=== PATIENT | female | born 1960 | race Caucasian/White ===

== ENCOUNTER → 2021-06-15 | Outpatient (CLI) | payer OTHER, MEDICAID ==
--- NOTE | 2021-06-15 15:59 | REP ---
INDICATION: RADICULOPATHY, CARPAL TUNNEL. COMPARISON: None. TECHNIQUE: AP, lateral, and oblique views of the right and left wrist. FINDINGS: Left and right wrists demonstrates advanced degenerative changes primarily involving the 1st carpometacarpal joints bilaterally including cortical irregularity, heterotopic ossification/osteophyte formation, subchondral cystic changes, periarticular sclerosis, and chronic subluxation. Cortical irregularity and subtle heterogeneity to the remainder of the carpal bones as well as periarticular sclerosis and joint space narrowing at the radiocarpal joint line. IMPRESSION: Advanced degenerative changes primarily involving the 1st carpometacarpal joints bilaterally. <Electronically signed by Charlie Solomon > 06/15/21 [id number]
--- NOTE | 2021-06-15 16:40 | REP ---
INDICATION: RADICULOPATHY, CARPAL TUNNEL. COMPARISON: None. TECHNIQUE: Seven views FINDINGS: Marked hypertrophic degenerative changes are seen involving the facet joints and uncovertebral joints bilaterally at all levels. There is foraminal narrowing seen from C3-4 to C7-T1 bilaterally. There is advanced disc space narrowing seen C5-6 2 C7-T1 inclusive. On the neutral lateral view there is a 7.2 mm anterolisthesis of C4 on C5. This increases to 6.84 mm on flexion and reduces back to 5.2 mm on extension. Heavy anterior and posterior osteophytic ridging is seen C4 through C7. The dens cannot be effectively evaluated secondary to the superimposition of osseous structures and/or dentition on all views. 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 Neurosurgical consultation is recommended. <Electronically signed by Eddie Curran > 06/15/21 [id number]
== END ==
LOC: M SOG 14:07
PROVIDERS: ATTEND Orthopaedic Surgery Sports Medicine
DX: M54.12 Radiculopathy, cervical region (principal); M43.02 Spondylolysis, cervical region; M48.02 Spinal stenosis, cervical region; M19.031 Primary osteoarthritis, right wrist; M19.032 Primary osteoarthritis, left wrist; G56.03 Carpal tunnel syndrome, bilateral upper limbs

== ENCOUNTER → 2021-06-28 | Outpatient (CLI) | payer OTHER ==
--- NOTE | 2021-06-28 17:03 | REPVR ---
PROCEDURE INFORMATION: Exam: MR Cervical Spine Without Contrast Exam date and time: 06/28/2021 3:00 PM Age: 61 years old Clinical indication: Radicular pain (radiculopathy); Cervical region; Additional info: Radiculopathy, carpal tunnel syndrome TECHNIQUE: Imaging protocol: Multiplanar magnetic resonance images of the cervical spine without contrast. COMPARISON: CR SPINE CERVICAL COMPLETE 06/15/2021 2:09 PM FINDINGS: Vertebrae: There is 2 mm of anterolisthesis of C3 upon C4, C4 upon C5, and C7 upon T1. There is 2 mm retrolisthesis of C6 upon C7. There is preservation of vertebral body height. Disc spaces: There is loss of T2 signal throughout the intervertebral disc spaces, with loss of disc space height at C5-C6 and C6-C7, findings related to degenerative disc disease. Spinal cord: Normal signal. No cord compression. C2-C3: No significant disc disease. There are facet joint degenerative changes with mild narrowing of the neural foramina. No significant spinal stenosis. C3-C4: There is a small disc osteophyte complex without mass effect. There are uncovertebral joint and facet joint degenerative changes with severe narrowing the left and moderate narrowing the right. No significant spinal stenosis. C4-C5: There is a small disc osteophyte complex does reach the cord. There are uncovertebral joint and facet joint degenerative changes with moderate narrowing the right and mild the left neural. No significant spinal stenosis. C5-C6: There is a diffuse disc osteophyte complex which extends to but does not cause mass effect on the cord. There are uncovertebral joint and facet joint degenerative changes with severe narrowing the neural foramina borderline compromise of the central, with the AP diameter measuring 9.6 mm. C6-C7: There is a diffuse disc osteophyte complex which extends to but does not cause mass effect on the cord. There are uncovertebral joint and facet joint degenerative changes with severe narrowing the neural foramina borderline compromise of the central, with the AP diameter also measuring 9.6 mm. C7-T1: No significant disc disease. There are facet joint degenerative changes. No significant spinal stenosis. Soft tissues: Unremarkable. Vertebral arteries: Expected flow voids in the vertebral arteries. IMPRESSION: 1. There are degenerative changes throughout with borderline central stenosis at C5-C6 and C6-C7. 2. There is severe neural foraminal narrowing throughout, most severe at C5-C6 and C6-C7. Electronically signed by: Constantin Plaza On 06/28/2021 17:02:54 PM
--- NOTE | 2021-06-30 10:37 | REP ---
INDICATION: RADICULOPATHY, CARPAL TUNNEL SYNDROME. COMPARISON: None. TECHNIQUE: Radiographs 06/15/2021. The study is limited by patient motion. FINDINGS: Triangular fibrocartilage complex:There appears to be a partial tear of the triangular fibrocartilage complex at the ulnar styloid insertion. Scapholunate and lunatotriquetral ligaments: Intact. Flexor and extensor tendons: Intact. No tenosynovitis. Carpal tunnel region: No significant abnormality. No abnormal signal in median nerve. In the anterolateral superficial soft tissues at the level of the proximal carpal row there is a lobulated cystic structure, most consistent with a ganglion cyst, measuring approximately 7 x 17 x 11 mm. Joint fluid: No effusion. Distal radioulnar joint: Small amount of fluid present. Bone marrow:Diffuse arthritic changes seen at the intercarpal joints, with mild scattered subcortical cystic change in the capitate and scaphoid. Severe arthritic changes seen between the trapezium and base of 1st metacarpal with large spurs at the medial margin of that joint and lateral subluxation of the base of the 1st metacarpal. There is a subcentimeter subcortical cyst in the head of the 1st metacarpal. There are moderate degenerative changes noted at the 1st metacarpophalangeal joint. IMPRESSION: There appears to be a partial tear of the triangular fibrocartilage complex at the ulnar styloid insertion. In the anterolateral superficial soft tissues at the level of the proximal carpal row there is a lobulated cystic structure, most consistent with a ganglion cyst, measuring approximately 7 x 17 x 11 mm. Mild arthritic changes of the intercarpal joints. Severe arthritic changes at the joint between the trapezium and base of 1st metacarpal. <Electronically signed by Javad Zamudio > 06/30/21 [id number]
--- NOTE | 2021-06-30 11:40 | REP ---
INDICATION: RADICULOPATHY, CARPAL TUNNEL SYNDROME. COMPARISON: Radiographs 06/15/2021. TECHNIQUE: Multiple sequences obtained in the axial, coronal and sagittal planes. FINDINGS: Triangular fibrocartilage complex:I suspect a partial tear of the triangular fibrocartilage complex at the ulnar styloid insertion. Scapholunate and lunatotriquetral ligaments: Intact. Flexor and extensor tendons: At the level of the metacarpals there is mild fluid surrounding the flexor pollicis longus tendon compatible with mild tenosynovitis. The flexor and extensor tendons are otherwise unremarkable. Carpal tunnel region: No significant abnormality. No abnormal signal in median nerve. An oval cystic structure is seen lateral to the scaphoid measuring approximately 8 x 19 x 5 mm, I suspect this represents a ganglion cyst. Joint fluid: No effusion. Distal radioulnar joint: A tiny amount of fluid is present. Bone marrow:There are diffuse arthritic changes at the radiocarpal, ulnocarpal and intercarpal joints. There is subchondral marrow edema in the distal radius dorsally, in the capitate and lunate, with severe joint space narrowing at that location. There is severe joint space narrowing and spurring at the joint between the trapezium and base of 1st metacarpal with large spurs at the medial aspect of this joint and mild subchondral marrow edema along the joint. Subcentimeter subcortical cysts are seen in the distal ulna and radius, scaphoid, triquetrum, capitate and trapezium. IMPRESSION: I suspect a partial tear of the triangular fibrocartilage complex at the ulnar styloid insertion. Mild fluid surrounding the flexor pollicis longus tendon at the level of the metacarpals is compatible with mild tenosynovitis. Ganglion cyst lateral to the scaphoid 8 x 19 x 5 mm. Diffuse arthritic changes as discussed above. <Electronically signed by Javad Zamudio > 06/30/21 [id number]
== END ==
LOC: M RAD 14:05
PROVIDERS: ATTEND Orthopaedic Surgery Sports Medicine
DX: S63.591A Other specified sprain of right wrist, initial encounter (principal); S63.592A Other specified sprain of left wrist, initial encounter; M67.431 Ganglion, right wrist; M67.432 Ganglion, left wrist; X58.XXXA Exposure to other specified factors, initial encounter; Y92.89 Other specified places as the place of occurrence of the external cause; M19.041 Primary osteoarthritis, right hand; M19.042 Primary osteoarthritis, left hand; G56.03 Carpal tunnel syndrome, bilateral upper limbs; M50.820 Other cervical disc disorders, mid-cervical region, unspecified level; M50.123 Cervical disc disorder at C6-C7 level with radiculopathy; M99.51 Intervertebral disc stenosis of neural canal of cervical region; M54.12 Radiculopathy, cervical region